=== PATIENT | female | born 1995 | race Caucasian/White ===

== ENCOUNTER 2019-01-21 23:28 | Emergency (ER) | payer SELFPAY ==
[~2019-01-21] VITALS: Ht 175.3 cm; Wt 90.9 kg
[2019-01-21 23:45] VITALS: BP 136/86; TEMP 99.1
[2019-01-22 00:13] LABS: COLLECTION METHOD CLEAN CATCH
[2019-01-22 00:48] LABS: MUCOUS Present /lpf; PH 7 (5-8); SQUAMOUS EPITHELIAL 0-2 /hpf; URINE APPEARANCE Clear; URINE BACTERIA Occasional /hpf; URINE BILIRUBIN Negative (NEGATIVE); URINE BLOOD Negative (NEGATIVE); URINE COLOR Yellow; URINE GLUCOSE Negative (NEGATIVE); URINE KETONE Negative (NEGATIVE); URINE LEUKOCYTE ESTERASE 1+ (NEGATIVE); URINE NITRATE Negative (NEGATIVE); URINE PROTEIN(semi-quant) Negative (NEGATIVE); URINE RBC 0-2 /hpf; URINE UROBILINOGEN Negative (NEGATIVE)
[2019-01-22 00:55] LABS: BASO % 0.3 % (0.0-2.0); EOS % 1.1 % (0-4.0); GRAN # 1.9 (1.4-6.5); GRAN % 52.6 % (42.2-75.2); HEMOGLOBIN 12.3 g/dl (12.5-16.0); LYMPH # 1.3 (1.2-3.4); LYMPH % 35.3 % (20.0-51.0); MEAN CELL VOLUME 88 fl (80.0-100.0); MEAN CORPUSCULAR HEMOGLOBIN 30 pg (27.0-31.0); MEAN CORPUSCULAR HGB CONC 34 g/dl (33.0-37.0); MEAN PLATELET VOLUME 10.9 fl (7.4-10.4); MONO # 0.4 (0.1-0.6); MONO % 10.7 % (1.7-9.3); PLATELET COUNT 249 K/mm3 (130-400); RED BLOOD COUNT 4.15 M/mm3 (4.10-5.30); REDCELL DISTRIBUTION WIDTH-CV 14.1 % (11.5-14.5)
[2019-01-22 00:59] LABS: HEMATOCRIT 36.3 % (37.0-47.0)
[2019-01-22 01:04] LABS: ALANINE AMINOTRANSFERASE 18 U/L (9-52); ALBUMIN 4.5 gm/dL (3.5-5.0); ALKALINE PHOSPHATASE 66 U/L (50-136); ANION GAP 10 mmol/L (7-16); AST,SGOT 27 U/L (15-37); BILIRUBIN,TOTAL 0.3 mg/dL (0.0-1.0); BLOOD UREA NITROGEN 11 mg/dL (7-17); CALCIUM 9.7 mg/dL (8.4-10.2); CARBON DIOXIDE 26 mmol/L (22-30); CHLORIDE 105 mmol/L (98-107); CREATININE, serum 0.88 (0.52-1.25); GLUCOSE 104 mg/dL (74-106); LIPASE 103 U/L (23-300); POTASSIUM 3.7 mmol/L (3.4-5.0); SODIUM 141 mmol/L (137-145)
[2019-01-22 01:07] LABS: C-REACTIVE PROTEIN < 0.5 mg/dL (0.0-0.9)
[2019-01-22] MEDS ORDERED: CARAFATE 1GM1 G PO (01:43)
[2019-01-22] MEDS ORDERED: CEFTIN500 MG PO (01:43)
[2019-01-22] MEDS ORDERED: PROTONIX 40MG T40 MG PO (01:43)
[2019-01-22 02:00] VITALS: PULSE 83
== END 2019-01-22 02:00 | disposition home or self-care (01) ==
LOC: COL.ER 23:28
PROVIDERS: Emergency Medicine
DX: K29.70 Gastritis, unspecified, without bleeding (principal); N39.0 Urinary tract infection, site not specified
CPT/HCPCS: A4216; J0696; J7030